=== PATIENT | female | born 1990 | race Two or more races ===

== ENCOUNTER 2019-05-06 10:39 | Observation (INO) | payer OTHER ==
[~2019-05-06 10:39] MED LIST: SEVOFLURANE 15 MIN
[2019-05-06] MEDS: LACTATED RINGER'S 1,000 ML IV (12:25)
[2019-05-06] MEDS ORDERED: MIDAZOLAM 1 MG/ML 2 ML INJ (15:09)
[2019-05-06] MEDS: BUPIVACAINE 0.5%/EPI (SDV) 30 ML INJ (15:59)
[2019-05-06] MEDS: GELATIN SIZE 100 SPONGE (15:59)
[2019-05-06] MEDS: THROMBIN 5000 UNIT VIAL (15:59)
[2019-05-06] MEDS: POLYMYXIN/BACITRACIN 1L IRRIG (15:59)
[2019-05-06] MEDS ORDERED: LIDOCAINE 2% (SDV) 5 ML INJ (17:52)
[2019-05-06] MEDS ORDERED: ROCURONIUM 50 MG INJ (17:52)
[2019-05-06] MEDS ORDERED: GLYCOPYRROLATE 0.4 MG INJ (17:52)
[2019-05-06] MEDS ORDERED: PROPOFOL 20 ML (17:52)
[2019-05-06] MEDS ORDERED: NEOSTIGMINE 3 MG/3 ML SYRINGE (17:52)
[2019-05-06] MEDS ORDERED: CEFAZOLIN 1 GM INJ (17:53)
[2019-05-06] MEDS ORDERED: ONDANSETRON 4 MG INJ (17:53)
[2019-05-06] MEDS ORDERED: ACETAMINOPHEN 325 MG TAB PO (18:00)
[2019-05-06] MEDS ORDERED: PROCHLORPERAZINE 10 MG TAB PO (18:00)
[2019-05-06] MEDS ORDERED: NACL 0.9% 3 ML SYG IV (18:00)
[2019-05-06] MEDS ORDERED: NALOXONE (0.4 MG/ML) INJ IV (18:00)
[2019-05-06] MEDS: CEFAZOLIN 1 GM/50 ML (PMX) 50 ML IVPB (18:00)
[2019-05-06] MEDS ORDERED: AL HYDROX/MG HYDROX/SIMETH 30 ML CUP PO (18:00)
[2019-05-06] MEDS ORDERED: HYDROmorphONE 1 MG/5 ML IV SYRINGE IV (18:15)
[2019-05-06] MEDS: HYDROmorphONE 1 MG/5 ML IV SYRINGE IV ×3 (18:26→19:08)
[2019-05-06] MEDS: ONDANSETRON 4 MG INJ IV (18:26)
[2019-05-06] MEDS: MEPERIDINE 25 MG INJ IV (18:27)
[2019-05-06] MEDS ORDERED: METOCLOPRAMIDE 10 MG INJ IV (18:30)
[2019-05-06] MEDS ORDERED: FENTAnyl 50 MCG/ML VIAL IV (18:30)
[2019-05-06] MEDS ORDERED: DIPHENHYDRAMINE 50 MG INJ IV (18:30)
[2019-05-06] MEDS: HYDROmorphONE 0.2 MG/ML PCA IV (18:39)
[2019-05-06] MEDS: HYDROCODONE/APAP (5/325) TAB PO (19:12)
[2019-05-07] MEDS: CEFAZOLIN 1 GM/50 ML (PMX) 50 ML IVPB ×4 (00:17→18:14)
[2019-05-07] MEDS: LACTATED RINGER'S 1,000 ML IV (00:30)
[2019-05-07] MEDS: ONDANSETRON 4 MG INJ IV ×3 (00:45→13:44)
[2019-05-07] MEDS: HYDROmorphONE 0.2 MG/ML PCA IV (04:41)
[2019-05-07 05:36] LABS: HEMATOCRIT 36.2 % (37.0-47.0); HEMOGLOBIN 11.6 g/dl (12.0-16.0)
[2019-05-07 06:38] LABS: ANION GAP 6 (5-13); BLOOD UREA NITROGEN 11 mg/dl (7-20); CARBON DIOXIDE 31 mmol/L (21-31); CHLORIDE 102 mmol/L (97-110); CREATININE 0.56 mg/dl (0.44-1.00); Estimated GFR > 60 mL/min (>60); GLUCOSE 106 mg/dl (70-220); POTASSIUM 4.1 mmol/L (3.5-5.1); SODIUM 139 mmol/L (135-144)
[2019-05-07] MEDS: DOCUSATE SODIUM 100 MG CAP PO (08:38)
[2019-05-07] MEDS: HYDROCODONE/APAP (5/325) TAB PO ×2 (10:27→18:11)
[2019-05-07] MEDS: HYDROmorphONE 0.5 MG/0.5 ML SYG IV (13:41)
== END 2019-05-07 19:45 | disposition home or self-care (01) ==
LOC: SDS 10:39 → MS1 18:04
DX: M51.17 Intervertebral disc disorders with radiculopathy, lumbosacral region (principal)
CPT/HCPCS: 63030; 72100; 80048; 84703; 85014; 85018; 88304; 97116; 97161; 97530